=== PATIENT | male | born 1980 | race Caucasian/White ===

== ENCOUNTER 2017-03-05 17:13 | Emergency (ER) | payer MEDICARE ==
[~2017-03-05] VITALS: Ht 180.3 cm; Wt 133.4 kg
[2017-03-05 17:19] VITALS: BP 116/79
[2017-03-05] MEDS ORDERED: OXYcodone/APAP 5/325MG TABLET ONE (17:48)
[2017-03-05] MEDS ORDERED: METHOCARBAMOL 750 MG TABLET ONE (17:48)
[2017-03-05] MEDS ORDERED: METHOCARBAMOL 750 MG TABLET PO ONE (18:00)
[2017-03-05] MEDS ORDERED: OXYcodone/APAP 5/325MG TABLET PO ONE (18:00)
== END 2017-03-05 18:19 | disposition home or self-care (01) ==
LOC: ED 18:13
DX: Z76.0 Encounter for issue of repeat prescription (principal); G89.29 Other chronic pain; M54.5 Low back pain; F11.23 Opioid dependence with withdrawal; E66.9 Obesity, unspecified
CPT/HCPCS: 99283